=== PATIENT | male | born 1945 | race Caucasian/White ===

== ENCOUNTER → 2016-04-21 | Outpatient (CLI) | payer MEDICARE | END | disposition home or self-care (01) | LOC: PCVCCLINIC 10:01 | PROVIDERS: ATTEND Internal Medicine Cardiovascular Disease | DX: I10 Essential (primary) hypertension (principal); E78.5 Hyperlipidemia, unspecified; R42 Dizziness and giddiness; R00.2 Palpitations; R94.31 Abnormal electrocardiogram [ECG] [EKG] | CPT/HCPCS: G0463 ==

== ENCOUNTER → 2016-04-28 | Outpatient (CLI) | payer MEDICARE | END | disposition home or self-care (01) | LOC: PCVCIMAG 10:30 | PROVIDERS: ATTEND Internal Medicine Cardiovascular Disease | DX: R55 Syncope and collapse (principal); R00.2 Palpitations; R00.0 Tachycardia, unspecified; R94.31 Abnormal electrocardiogram [ECG] [EKG]; R09.89 Other specified symptoms and signs involving the circulatory and respiratory systems | CPT/HCPCS: 93325; 93351; 93880 ==

== ENCOUNTER → 2017-08-02 | Outpatient (CLI) | payer MEDICARE | END | disposition home or self-care (01) | LOC: PCVCCLINIC 13:33 | DX: I10 Essential (primary) hypertension (principal); E78.5 Hyperlipidemia, unspecified; G47.33 Obstructive sleep apnea (adult) (pediatric); Z79.899 Other long term (current) drug therapy; Z79.82 Long term (current) use of aspirin | CPT/HCPCS: 93005; G0463 ==

== ENCOUNTER → 2018-04-24 | Outpatient (CLI) | payer MEDICARE ==
--- NOTE | 2018-05-01 15:33 | PCVCIMAG ---
APPROVED REPORT Study performed: 04/24/2018 13:23:00 Exam: Stress Echocardiogram Indication: Hypertension, Hyperlipidemia, mingo, obesity Patient Location: Echo lab Stress Nurse: Tamara Wilson RN Status: routine Ht: 6 ft 2 in HR: 90 bpm BP: 140/80 mmHg Rhythm: NSR Procedure The patient underwent an Exercise Stress Test using the Jose Protocol. Blood pressure, heart rate, and EKG were monitored. An Echocardiogram was performed by pharmacy technician in four stages in quad fashion. At peak stress, four selected images were obtained and placed side by side with resting images for comparison. Stress Test Details Stress Test: Exercise stress testing was performed using a Jose protocol. HR Resting HR: 90 bpmMax Heart Rate (APMHR): 147 bpm Max HR Achieved: 164 bpmTarget HR (85% APMHR): 124 bpm % of APMHR: 111 BP Resting BP: 140/80 mmHg Max BP: 200/80 mmHg Recovery BP: 164/70 mmHg BP response to stress: Normal blood pressure response to stress. ECG Resting ECG: Sinus Rhythm Stress ECG: Sinus Rhythm ST Change: non-specific ST changes at peak exertion Arrhythmia: isolated PVCs Recovery ECG: Sinus Rhythm Recovery ST Change: non-specific ST changes Recovery Arrhythmia: frequent PVCs Clinical Reason for Termination: Maximal effort, Dyspnea Stress Symptoms: Dyspnea, knee pain Exercise duration: 5 min 32 sec Highest Stage Achieved: Stage 2: 2.5 mph at 12% grade. Exercise capacity: 7 METs Overall Exercise Capacity for Age: Average Scale: Sedentary Angina Score: None Pre-Stress Echo The resting Echocardiogram showed normal left ventricular contractility with an estimated Ejection Fraction of about 50-55%. Normal wall motion in all segments on baseline images. Post-Stress Echo The stress Echocardiogram showed normal left ventricular contractility with an estimated Ejection Fraction of about 60-65%. Normal augmentation of wall motion in all segments on post stress images. Clinical No clinical or ECG evidence for ischemia. Conclusion Clinical Response: Non-ischemic Exercise Capacity: Average Stress ECG Response: Non-ischemic Stress Echo Images: Non-ischemic The left ventricle is normal in size and wall thickness in both the rest and stress images. Suggest myocardial perfusion imaging due to poor acoustic windows and difficulty imaging. 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 Other Information Study Quality: Technically Limited Technically limited study due to body habitus/ poor acoustic windows. <Conclusion> The left ventricle is normal in size and wall thickness in both the rest and stress images. Suggest myocardial perfusion imaging due to poor acoustic windows and difficulty imaging. 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
== END | disposition home or self-care (01) ==
LOC: PCVCIMAG 13:46
PROVIDERS: ATTEND Internal Medicine Cardiovascular Disease
DX: I10 Essential (primary) hypertension (principal); E78.5 Hyperlipidemia, unspecified; G47.33 Obstructive sleep apnea (adult) (pediatric); E66.9 Obesity, unspecified
CPT/HCPCS: 93325; 93351

== ENCOUNTER → 2018-10-16 | Outpatient (CLI) | payer MEDICARE | END | disposition home or self-care (01) | LOC: PCVCCLINIC 14:00 | PROVIDERS: ATTEND Internal Medicine Cardiovascular Disease | DX: I10 Essential (primary) hypertension (principal); I71.2 Thoracic aortic aneurysm, without rupture; I35.1 Nonrheumatic aortic (valve) insufficiency; G47.33 Obstructive sleep apnea (adult) (pediatric); E78.5 Hyperlipidemia, unspecified; Z72.89 Other problems related to lifestyle; Z79.82 Long term (current) use of aspirin; Z79.899 Other long term (current) drug therapy | CPT/HCPCS: 93005; G0463 ==

== ENCOUNTER → 2018-12-05 | Outpatient (CLI) | payer MEDICARE | END | disposition home or self-care (01) | LOC: PCVCCLINIC 15:08 | PROVIDERS: ATTEND Internal Medicine Cardiovascular Disease | DX: I71.2 Thoracic aortic aneurysm, without rupture (principal); I10 Essential (primary) hypertension; E78.00 Pure hypercholesterolemia, unspecified; G47.33 Obstructive sleep apnea (adult) (pediatric); E78.5 Hyperlipidemia, unspecified; Z72.89 Other problems related to lifestyle; Z82.49 Family history of ischemic heart disease and other diseases of the circulatory system; Z79.82 Long term (current) use of aspirin; Z79.899 Other long term (current) drug therapy | CPT/HCPCS: 36415; 80061; 93005; G0463 ==